=== PATIENT | male | born 1950 | race Caucasian/White ===

== ENCOUNTER 2018-03-17 11:43 | Inpatient (IN) | payer MEDICARE, OTHER ==
[~2018-03-17] VITALS: Ht 188 cm; Wt 75.2 kg
[2018-03-17] VITALS (10 sets, daily range): BP systolic 69–103; BP diastolic 35–64
[2018-03-17] MEDS ORDERED: normal saline 1000ML IV soln IV ONE (12:20)
[2018-03-17] MEDS ORDERED: vancomycin/NS 1 GM ADD-VANTAGE 250 ML IV ONE (12:20)
[2018-03-17] MEDS ORDERED: piperacillin/tazo 3.375gm/50ml 50 ML IV ONE (12:20)
[2018-03-17] MEDS ORDERED: iohexol 350MG/ML 100ml bottle IV ONE (12:28)
[2018-03-17] MEDS ORDERED: dextrose 50%-water 50ml dispensing syringe IV ONE ×2 (12:28→12:30)
[2018-03-17 12:45] LABS: BASOPHILS % (AUTO) 0 % (0-1); EOSINOPHILS % (AUTO) 0 % (0-6); HEMATOCRIT 47.8 % (42.0-52.0); HEMOGLOBIN 16.2 g/dl (14.0-17.9); LYMPHOCYTES # (AUTO) 0.7 X10'3 (1.1-4.8); LYMPHOCYTES % (AUTO) 2.7 % (21-51); MEAN CORPUSCULAR HEMOGLOBIN 31.4 PG (27.0-31.0); MEAN CORPUSCULAR HGB CONC 33.9 % (33.0-36.5); MEAN CORPUSCULAR VOLUME 92.7 FL (78-98); MEAN PLATELET VOLUME 8.6 FL (7.4-10.4); MONOCYTES % (AUTO) 0.1 % (2-12); NEUTROPHILS # (AUTO) 23.3 X10'3 (1.8-7.7); NEUTROPHILS % (AUTO) 97.2 % (42-75); RED BLOOD COUNT 5.16 X10'6 (4.70-6.10); RED CELL DISTRIBUTION WIDTH 14.6 % (11.5-14.5)
[2018-03-17 12:56] LABS: ABG BASE EXCESS -13.8 mmol/L (-2.0-3.0); ABG HCO3 9.8 mmol/L (22.0-26.0); ABG OXYGEN SATURATION 96.4 % (95-98); ABG PCO2 (T) 19.7 mmHg (35.0-48.0); ABG PH (T) 7.315 (7.350-7.450); ABG PO2 (T) 88.4 mmHg (83-108); ALLEN'S TEST Positive; FCOHb 1.4 % (0.5-1.5); FMetHb 0.2 % (0.3-1.12); FO2Hb 94.9 % (94-100); RESPIRATORY RATE (OBSERVED) 12 b/min; TOTAL HEMOGLOBIN 15.2 G/dl (14.0-18.0)
[2018-03-17 13:01] LABS: PLATELET COUNT 34 X10'3 (140-440)
[2018-03-17 13:05] LABS: PLATELET ESTIMATE DECREASED; TOTAL CELLS COUNTED 100; TOXIC VACUOLATION 3+
[2018-03-17 13:13] LABS: INR 1.8 INR
[2018-03-17 13:16] LABS: TOXIC GRANULATION 2+
[2018-03-17 13:17] LABS: ACANTHOCYTES 1+; PARTIAL THROMBOPLASTIN TIME 106 SECONDS (22-32); SCHISTOCYTES FEW
[2018-03-17] MEDS ORDERED: sodium chloride inj. 154 MEQ in Dextrose 10%-water IV solution 961.5 ML IV SCH ×2 (14:00→16:20)
[2018-03-17 14:12] LABS: HEMOGLOBIN A1C 5.8 % (4.5-6.2)
[2018-03-17 14:21] LABS: CHOL/HDL RATIO 2.6 (0.00-4.99); CHOLESTEROL 123 MG/DL (0-200); CREATINE KINASE 823 U/L (39-308); HDL CHOLESTEROL 47 MG/DL (35-60); LDL CHOLESTEROL 55 MG/DL (50-100); TRIGLYCERIDES 164 MG/DL (20-135)
[2018-03-17] MEDS ORDERED: NO HOME MEDS (14:54)
[2018-03-17 14:56] LABS: CHLORIDE 99 MMOL/L (99-107); GLUCOSE 37 MG/DL (70-104); POTASSIUM 3.8 MMOL/L (3.5-5.1); SODIUM 140 MMOL/L (135-145)
[2018-03-17 14:57] LABS: ALANINE AMINOTRANSFERASE 52 U/L (12-78); ALBUMIN 3.3 G/DL (3.4-5.0); ALBUMIN/GLOBULIN RATIO 1.1 (1.1-1.5); ALKALINE PHOSPHATASE 98 IU/L (46-116); ANION GAP 26 (8-16); ASPARTATE AMINO TRANSFERASE 98 U/L (10-37); BILIRUBIN,TOTAL 2.1 MG/DL (0.1-1.0); BLOOD UREA NITROGEN 28 MG/DL (7-18); BUN/CREATININE RATIO 7.7 (5.4-32.0); CALCIUM 8.5 MG/DL (8.5-10.1); CREATININE 3.64 MG/DL (0.60-1.10); MAGNESIUM 1.7 MG/DL (1.5-2.4); TOTAL PROTEIN 6.4 G/DL (6.4-8.2); eGFR 17 ML/MIN
[2018-03-17] MEDS ORDERED: normal saline 1000ml 1,000 ML IV PRN (16:16)
[2018-03-17] MEDS ORDERED: thiamine 100mg/ml 2ml inj. IV ONE (16:20)
[2018-03-17] MEDS ORDERED: dextrose 50%-water 50ml dispensing syringe IV PRN ×2 (16:20)
[2018-03-17] MEDS ORDERED: glucagon, human recombinant 1mg kit SUBCUT PRN (16:20)
[2018-03-17] MEDS ORDERED: acetaminophen 650mg rectal suppository RC PRN (16:20)
[2018-03-17] MEDS ORDERED: dextrose ORAL solution 15 GM/59 ML bottle PO PRN ×2 (16:20)
[2018-03-17] MEDS ORDERED: ondansetron/PF 4mg/2ml inj IV PRN (16:20)
[2018-03-17] MEDS ORDERED: morphine 4 MG/ML inj SYRINge IV PRN (16:20)
[2018-03-17] MEDS ORDERED: acetaminophen 325mg tablet PO PRN ×2 (16:20)
[2018-03-17] MEDS ORDERED: ipratropium/albuterol 3ml nebule NEB PRN (16:20)
[2018-03-17] MEDS ORDERED: vancomycin inj 500 MG in normal saline 100ml IV soln 100 ML IV ONE (16:50)
[2018-03-17 17:10] LABS: D-DIMER > 35.20 MG/L FEU (0-0.50)
[2018-03-17 17:24] LABS: ACETAMINOPHEN 3.9 UG/ML (10-30); LIPASE 81 U/L (73-393)
[2018-03-17] MEDS: NORepinephrine 8mg/ 250ml NS 250 ML IV PRN ×3 (17:24→23:01)
[2018-03-17 17:26] LABS: AMYLASE 51 U/L (25-115)
[2018-03-17 17:28] LABS: ETHANOL < 0.010 GM/DL (0.0-0.010)
[2018-03-17] MEDS ORDERED: normal saline 1000ML IV soln IVB ONE (18:40)
[2018-03-17 19:21] LABS: CLARITY,URINE SLIGHTLY CLOUDY (Clear); COLOR,URINE AMBER (Yellow); GLUCOSE, URINE NEGATIVE (Neg); KETONES,URINE TRACE mg/dl (Neg); LEUKOCYTE ESTERASE ,URINE NEGATIVE (Neg); NITRITES, URINE NEGATIVE (Neg); OCCULT BLOOD,URINE LARGE (Neg); PROTEIN,URINE 100 mg/dl (Neg); UA COLLECTION TYPE FOLEY CATH; UROBILINOGEN,URINE 0.2 E.U/dL (0.2-1.0)
[2018-03-17 19:26] LABS: URINE AMPHETAMINE SCREEN NEGATIVE (Neg); URINE BARBITUATE SCREEN NEGATIVE (Neg); URINE BENZODIAZEPINES SCREEN NEGATIVE (Neg); URINE CANNABINOID SCREEN POSITIVE (Neg); URINE COCAINE SCREEN NEGATIVE (Neg); URINE METHADONE SCREEN NEGATIVE (Neg); URINE OPIATE SCREEN NEGATIVE (Neg); URINE PHENCYCLIDINE SCREEN NEGATIVE (Neg)
[2018-03-17 19:30] LABS: AMORPHOUS URATES 2+; CAL OXALATE CRYSTALS 1+ /HPF (NEGATIVE)
[2018-03-17 19:32] LABS: BACTERIA,URINE NONE SEEN /HPF (Neg); RBC,URINE 0-2 /HPF (0-2); SQUAMOUS EPITHELIAL CELL,UR NONE SEEN /LPF (FEW); WBC,URINE 0-4 /HPF (0-4)
[2018-03-17 19:33] LABS: FINE GRANULAR CAST 0-3 /LPF (NEGATIVE); MUCUS STRANDS NONE SEEN /LPF (Neg); TRANSITIONAL EPI CELLS,URINE FEW /HPF
[2018-03-17 19:34] LABS: COARSE GRANULAR CAST 0-3 /LPF (NEGATIVE)
[2018-03-17] MEDS: piperacillin-tazo 2.25gm/50ml 50 ML IV SCH (20:51)
[2018-03-17] MEDS: normal saline 1000ml 1,000 ML IV SCH ×2 (20:53→22:56)
[2018-03-17] MEDS: thiamine inj. 100 MG, magnesium sulf injection 2 GM, MVI, adult No.4 with vit. K 10 ML ... IV SCH ×4 (20:56)
[2018-03-17] MEDS: famotidine/PF 10 mg/ml inj IV SCH (20:56)
[2018-03-17 21:10] LABS: OXYGEN SATURATION (MIXED VEN) 62.9 % (60-80); PO2 MIXED VENOUS (TEMP COR) 37.6 mmHg (35-46)
[2018-03-17 21:45] LABS: BASOPHILS % (AUTO) 0 % (0-1); EOSINOPHILS # (AUTO) 0.1 X10'3 (0-0.9); EOSINOPHILS % (AUTO) 0.1 % (0-6); HEMATOCRIT 42.5 % (42.0-52.0); HEMOGLOBIN 14.5 g/dl (14.0-17.9); LYMPHOCYTES # (AUTO) 1.3 X10'3 (1.1-4.8); MEAN CORPUSCULAR HEMOGLOBIN 31.9 PG (27.0-31.0); MEAN CORPUSCULAR HGB CONC 34.2 % (33.0-36.5); MEAN CORPUSCULAR VOLUME 93.2 FL (78-98); MEAN PLATELET VOLUME 7.7 FL (7.4-10.4); MONOCYTES # (AUTO) 0.6 X10'3 (0-0.9); MONOCYTES % (AUTO) 1.4 % (2-12); NEUTROPHILS # (AUTO) 40.5 X10'3 (1.8-7.7); NEUTROPHILS % (AUTO) 95.5 % (42-75); PLATELET COUNT 61 X10'3 (140-440); RED BLOOD COUNT 4.56 X10'6 (4.70-6.10); RED CELL DISTRIBUTION WIDTH 14.5 % (11.5-14.5)
[2018-03-17 21:56] LABS: WHITE BLOOD COUNT 42.5 X10'3 (4.5-11.0)
[2018-03-17] MEDS ORDERED: Dextrose 10%-water IV solution 1,000 ML IV SCH (22:40)
[2018-03-17] MEDS: sodium chloride inj. 154 MEQ in Dextrose 10%-water IV solution 961.5 ML IV SCH (23:00)
[2018-03-18] VITALS (27 sets, daily range): BP systolic 80–127; BP diastolic 55–73
[2018-03-18] MEDS: piperacillin-tazo 2.25gm/50ml 50 ML IV SCH ×3 (02:04→21:43)
[2018-03-18 04:08] LABS: BASOPHILS % (AUTO) 0 % (0-1); EOSINOPHILS % (AUTO) 0 % (0-6); HEMATOCRIT 41.5 % (42.0-52.0); HEMOGLOBIN 14.3 g/dl (14.0-17.9); LYMPHOCYTES # (AUTO) 1.2 X10'3 (1.1-4.8); LYMPHOCYTES % (AUTO) 2.6 % (21-51); MEAN CORPUSCULAR HEMOGLOBIN 31.8 PG (27.0-31.0); MEAN CORPUSCULAR HGB CONC 34.5 % (33.0-36.5); MEAN CORPUSCULAR VOLUME 92.2 FL (78-98); MEAN PLATELET VOLUME 9.1 FL (7.4-10.4); MONOCYTES # (AUTO) 0.1 X10'3 (0-0.9); MONOCYTES % (AUTO) 0.2 % (2-12); NEUTROPHILS # (AUTO) 44.4 X10'3 (1.8-7.7); NEUTROPHILS % (AUTO) 97.2 % (42-75); RED CELL DISTRIBUTION WIDTH 14.9 % (11.5-14.5)
[2018-03-18 04:12] LABS: WHITE BLOOD COUNT 45.7 X10'3 (4.5-11.0)
[2018-03-18 04:13] LABS: PLATELET COUNT 29 X10'3 (140-440)
[2018-03-18 04:15] LABS: INR 1.9 INR; PROTHROMBIN TIME 18.8 SECONDS (9.0-12.0)
[2018-03-18 04:18] LABS: ALANINE AMINOTRANSFERASE 255 U/L (12-78); ALBUMIN 2.4 G/DL (3.4-5.0); ALBUMIN/GLOBULIN RATIO 0.9 (1.1-1.5); ALKALINE PHOSPHATASE 47 IU/L (46-116); ANION GAP 13 (8-16); ASPARTATE AMINO TRANSFERASE 581 U/L (10-37); BILIRUBIN,TOTAL 1.4 MG/DL (0.1-1.0); BLOOD UREA NITROGEN 40 MG/DL (7-18); BUN/CREATININE RATIO 14.7 (5.4-32.0); CALCIUM 6.4 MG/DL (8.5-10.1); CHLORIDE 104 MMOL/L (99-107); CREATININE 2.73 MG/DL (0.60-1.10); GLUCOSE 184 MG/DL (70-104); LIPASE 86 U/L (73-393); MAGNESIUM 2.3 MG/DL (1.5-2.4); PHOSPHORUS 4.3 MG/DL (2.3-4.5); POTASSIUM 3.8 MMOL/L (3.5-5.1); SODIUM 136 MMOL/L (135-145); TOTAL CARBON DIOXIDE 19.3 MMOL/L (24-32); VANCOMYCIN,TROUGH 9.5 UG/ML (6.0-14.0); eGFR 24 ML/MIN
[2018-03-18 04:31] LABS: PARTIAL THROMBOPLASTIN TIME 71 SECONDS (22-32)
[2018-03-18 04:57] LABS: AMYLASE 47 U/L (25-115)
[2018-03-18] MEDS: NORepinephrine 8mg/ 250ml NS 250 ML IV PRN ×2 (05:34→13:21)
[2018-03-18] MEDS: normal saline 1000ml 1,000 ML IV SCH ×3 (05:35→18:56)
[2018-03-18] MEDS: sodium chloride inj. 154 MEQ in Dextrose 10%-water IV solution 961.5 ML IV SCH ×2 (05:35→14:00)
[2018-03-18 06:46] LABS: OCCULT BLOOD STOOL POSITIVE (Neg)
[2018-03-18 06:47] LABS: OCCULT BLOOD STOOL POSITIVE (Neg)
[2018-03-18 06:57] LABS: TOTAL CELLS COUNTED 100
[2018-03-18 06:58] LABS: PLATELET ESTIMATE DECREASED
[2018-03-18 06:59] LABS: ACANTHOCYTES 1+; BURR CELLS 2+; SCHISTOCYTES 1+; TOXIC GRANULATION 2+; TOXIC VACUOLATION 2+
[2018-03-18 07:22] LABS: HIV ANTIBODY 1&2 RAPID NON-REACTIVE (Neg)
[2018-03-18] MEDS: thiamine inj. 100 MG, magnesium sulf injection 2 GM, MVI, adult No.4 with vit. K 10 ML ... IV SCH ×4 (08:34)
[2018-03-18] MEDS: famotidine/PF 10 mg/ml inj IV SCH ×2 (08:35→20:51)
[2018-03-18 08:42] LABS: C DIFF ANTIGEN SEE COMMENTS (NEGATIVE); C DIFF SPECIMEN=DIARRHEA? ACCEPTABLE; C DIFFICILE TOXINS A&B NEGATIVE (Neg)
[2018-03-18 10:18] LABS: CLARITY,URINE Cloudy (Clear); COLOR,URINE Yellow (Yellow); GLUCOSE, URINE Negative (Neg); KETONES,URINE Negative (Neg); LEUKOCYTE ESTERASE ,URINE Negative (Neg); NITRITES, URINE Negative (Neg); OCCULT BLOOD,URINE Moderate (Neg); PROTEIN,URINE 30 mg/dl (Neg); UROBILINOGEN,URINE 0.2 E.U/dL (0.2-1.0)
[2018-03-18 10:20] LABS: CRYPTOSPORIDIUM AG NEGATIVE (Neg); GIARDIA LAMBLIA AG NEGATIVE (Neg)
[2018-03-18 10:21] LABS: UA COLLECTION TYPE FOLEY CATH
[2018-03-18 10:28] LABS: PLATELET COUNT 52 X10'3 (140-440)
[2018-03-18 10:36] LABS: BACTERIA,URINE NONE SEEN /HPF (Neg); SQUAMOUS EPITHELIAL CELL,UR NONE SEEN /LPF (FEW); WBC,URINE 0-4 /HPF (0-4)
[2018-03-18 10:37] LABS: AMORPHOUS URATES 2+; MUCUS STRANDS FEW /LPF (Neg)
[2018-03-18 10:39] LABS: COARSE GRANULAR CAST 0-3 /LPF (NEGATIVE)
[2018-03-18 10:48] LABS: UA EOSINOPHILS NO EOS /HPF
[2018-03-18 11:11] LABS: D-DIMER > 35.20 MG/L FEU (0-0.50); INR 1.5 INR; PARTIAL THROMBOPLASTIN TIME 56 SECONDS (22-32)
[2018-03-18 11:11] LABS: C DIFF TOXIN (LAMP) POSITIVE (NEG)
[2018-03-18] MEDS ORDERED: vancomycin/NS 1 GM ADD-VANTAGE 250 ML IV SCH (13:00)
[2018-03-18] MEDS: metroNIDAZOLE-Flagyl 500mg/NS 100 ML IV SCH (13:16)
[2018-03-18] MEDS ORDERED: vancomycin inj 1,250 MG in normal saline 250ml IV soln 250 ML IV SCH (17:00)
[2018-03-18 19:20] LABS: BASOPHILS % (AUTO) 0 % (0-1); EOSINOPHILS % (AUTO) 0 % (0-6); HEMATOCRIT 37.1 % (42.0-52.0); HEMOGLOBIN 12.9 g/dl (14.0-17.9); LYMPHOCYTES # (AUTO) 1.4 X10'3 (1.1-4.8); LYMPHOCYTES % (AUTO) 3.8 % (21-51); MEAN CORPUSCULAR HEMOGLOBIN 31.9 PG (27.0-31.0); MEAN CORPUSCULAR HGB CONC 34.6 % (33.0-36.5); MEAN PLATELET VOLUME 9.1 FL (7.4-10.4); MONOCYTES # (AUTO) 0.3 X10'3 (0-0.9); MONOCYTES % (AUTO) 0.9 % (2-12); NEUTROPHILS # (AUTO) 36.4 X10'3 (1.8-7.7); NEUTROPHILS % (AUTO) 95.3 % (42-75); RED BLOOD COUNT 4.04 X10'6 (4.70-6.10); RED CELL DISTRIBUTION WIDTH 14.9 % (11.5-14.5)
[2018-03-18 19:35] LABS: ALANINE AMINOTRANSFERASE 220 U/L (12-78); ALBUMIN 2.3 G/DL (3.4-5.0); ALBUMIN/GLOBULIN RATIO 0.9 (1.1-1.5); ALKALINE PHOSPHATASE 53 IU/L (46-116); ANION GAP 12 (8-16); ASPARTATE AMINO TRANSFERASE 354 U/L (10-37); BILIRUBIN,TOTAL 0.9 MG/DL (0.1-1.0); BLOOD UREA NITROGEN 37 MG/DL (7-18); BUN/CREATININE RATIO 17.7 (5.4-32.0); CALCIUM 6.6 MG/DL (8.5-10.1); CHLORIDE 108 MMOL/L (99-107); CREATININE 2.09 MG/DL (0.60-1.10); GLUCOSE 113 MG/DL (70-104); MAGNESIUM 2.4 MG/DL (1.5-2.4); POTASSIUM 3.3 MMOL/L (3.5-5.1); SODIUM 140 MMOL/L (135-145); TOTAL CARBON DIOXIDE 20.1 MMOL/L (24-32); TOTAL PROTEIN 4.8 G/DL (6.4-8.2); eGFR 32 ML/MIN
[2018-03-18 19:44] LABS: WHITE BLOOD COUNT 38.2 X10'3 (4.5-11.0)
[2018-03-18 19:45] LABS: PLATELET COUNT 25 X10'3 (140-440)
[2018-03-18] MEDS ORDERED: potassium Cl 20 mEq/100mL bag IV ONE (20:00)
[2018-03-18] MEDS: lactobacillus rhamnosus 10,000 MMU CELLS/CAPSULE PO SCH (20:49)
[2018-03-18] MEDS: dextrose 5%-1/2 normal saline 1,000 ML IV SCH (23:21)
[2018-03-19] VITALS (24 sets, daily range): BP systolic 101–148; BP diastolic 60–92
[2018-03-19] MEDS: metroNIDAZOLE-Flagyl 500mg/NS 100 ML IV SCH ×2 (00:35→08:43)
[2018-03-19] MEDS: piperacillin-tazo 2.25gm/50ml 50 ML IV SCH ×2 (02:13→07:59)
[2018-03-19 02:45] LABS: BASOPHILS % (AUTO) 0 % (0-1); EOSINOPHILS % (AUTO) 0 % (0-6); HEMATOCRIT 36.6 % (42.0-52.0); HEMOGLOBIN 12.5 g/dl (14.0-17.9); LYMPHOCYTES # (AUTO) 1.3 X10'3 (1.1-4.8); LYMPHOCYTES % (AUTO) 3.5 % (21-51); MEAN CORPUSCULAR HEMOGLOBIN 31.7 PG (27.0-31.0); MEAN CORPUSCULAR HGB CONC 34.2 % (33.0-36.5); MEAN CORPUSCULAR VOLUME 92.8 FL (78-98); MEAN PLATELET VOLUME 8.1 FL (7.4-10.4); MONOCYTES # (AUTO) 0.5 X10'3 (0-0.9); MONOCYTES % (AUTO) 1.3 % (2-12); NEUTROPHILS # (AUTO) 34.3 X10'3 (1.8-7.7); NEUTROPHILS % (AUTO) 95.2 % (42-75); RED BLOOD COUNT 3.95 X10'6 (4.70-6.10); RED CELL DISTRIBUTION WIDTH 14.9 % (11.5-14.5)
[2018-03-19 02:56] LABS: PLATELET COUNT 50 X10'3 (140-440)
[2018-03-19 03:00] LABS: ALANINE AMINOTRANSFERASE 203 U/L (12-78); ALBUMIN 2.4 G/DL (3.4-5.0); ALBUMIN/GLOBULIN RATIO 0.9 (1.1-1.5); ALKALINE PHOSPHATASE 70 IU/L (46-116); ANION GAP 12 (8-16); ASPARTATE AMINO TRANSFERASE 317 U/L (10-37); BILIRUBIN,TOTAL 1.2 MG/DL (0.1-1.0); BLOOD UREA NITROGEN 33 MG/DL (7-18); BUN/CREATININE RATIO 18.4 (5.4-32.0); CALCIUM 7.3 MG/DL (8.5-10.1); CHLORIDE 107 MMOL/L (99-107); CREATININE 1.79 MG/DL (0.60-1.10); GLUCOSE 97 MG/DL (70-104); POTASSIUM 3.7 MMOL/L (3.5-5.1); SODIUM 139 MMOL/L (135-145); TOTAL CARBON DIOXIDE 20.2 MMOL/L (24-32); TOTAL PROTEIN 5.1 G/DL (6.4-8.2); eGFR 38 ML/MIN
[2018-03-19 03:03] LABS: PARTIAL THROMBOPLASTIN TIME 39 SECONDS (22-32); PROTHROMBIN TIME 10.7 SECONDS (9.0-12.0)
[2018-03-19 03:36] LABS: TOTAL CELLS COUNTED 100
[2018-03-19 03:37] LABS: BURR CELLS 1+; PLATELET ESTIMATE DECREASED
[2018-03-19 03:42] LABS: TOXIC GRANULATION 1+
[2018-03-19] MEDS: dextrose 5%-1/2 normal saline 1,000 ML IV SCH ×4 (05:50→23:10)
[2018-03-19] MEDS: lactobacillus rhamnosus 10,000 MMU CELLS/CAPSULE PO SCH ×2 (07:59→20:18)
[2018-03-19] MEDS: famotidine/PF 10 mg/ml inj IV SCH ×2 (07:59→20:18)
[2018-03-19] MEDS: thiamine inj. 100 MG, magnesium sulf injection 2 GM, MVI, adult No.4 with vit. K 10 ML ... IV SCH ×4 (10:24)
[2018-03-19] MEDS ORDERED: lactulose 20gm/30ml cup PO PRN (16:20)
[2018-03-19] MEDS: piperacillin/tazo 3.375gm/50ml 50 ML IV SCH ×2 (16:37→23:12)
[2018-03-20] VITALS (17 sets, daily range): BP systolic 81–156; BP diastolic 45–81
[2018-03-20 02:57] LABS: BASOPHILS % (AUTO) 0 % (0-1); EOSINOPHILS % (AUTO) 0 % (0-6); HEMATOCRIT 34.6 % (42.0-52.0); HEMOGLOBIN 11.7 g/dl (14.0-17.9); LYMPHOCYTES # (AUTO) 1.1 X10'3 (1.1-4.8); LYMPHOCYTES % (AUTO) 4.3 % (21-51); MEAN CORPUSCULAR HEMOGLOBIN 31.2 PG (27.0-31.0); MEAN CORPUSCULAR HGB CONC 33.7 % (33.0-36.5); MEAN CORPUSCULAR VOLUME 92.5 FL (78-98); MEAN PLATELET VOLUME 10.2 FL (7.4-10.4); MONOCYTES # (AUTO) 0.4 X10'3 (0-0.9); MONOCYTES % (AUTO) 1.6 % (2-12); NEUTROPHILS # (AUTO) 23.3 X10'3 (1.8-7.7); NEUTROPHILS % (AUTO) 94.1 % (42-75); RED BLOOD COUNT 3.74 X10'6 (4.70-6.10); RED CELL DISTRIBUTION WIDTH 14.5 % (11.5-14.5); WHITE BLOOD COUNT 24.7 X10'3 (4.5-11.0)
[2018-03-20 03:07] LABS: PARTIAL THROMBOPLASTIN TIME 30 SECONDS (22-32); PROTHROMBIN TIME 10.2 SECONDS (9.0-12.0)
[2018-03-20 03:17] LABS: ALANINE AMINOTRANSFERASE 164 U/L (12-78); ALBUMIN 2.3 G/DL (3.4-5.0); ALBUMIN/GLOBULIN RATIO 0.9 (1.1-1.5); ALKALINE PHOSPHATASE 142 IU/L (46-116); ANION GAP 7 (8-16); ASPARTATE AMINO TRANSFERASE 202 U/L (10-37); BILIRUBIN,TOTAL 2.7 MG/DL (0.1-1.0); BLOOD UREA NITROGEN 24 MG/DL (7-18); BUN/CREATININE RATIO 19.2 (5.4-32.0); CALCIUM 7.6 MG/DL (8.5-10.1); CHLORIDE 104 MMOL/L (99-107); CREATININE 1.25 MG/DL (0.60-1.10); GLUCOSE 125 MG/DL (70-104); POTASSIUM 3.1 MMOL/L (3.5-5.1); SODIUM 136 MMOL/L (135-145); TOTAL CARBON DIOXIDE 24.9 MMOL/L (24-32); eGFR 58 ML/MIN
[2018-03-20 03:21] LABS: PLATELET COUNT 27 X10'3 (140-440)
[2018-03-20] MEDS: lactobacillus rhamnosus 10,000 MMU CELLS/CAPSULE PO SCH ×2 (08:14→20:18)
[2018-03-20] MEDS: piperacillin/tazo 3.375gm/50ml 50 ML IV SCH ×3 (08:14→23:27)
[2018-03-20] MEDS: famotidine/PF 10 mg/ml inj IV SCH ×2 (08:15→20:17)
[2018-03-20] MEDS ORDERED: VANCOMYCIN LEVEL IV ONE (12:30)
[2018-03-20] MEDS: thiamine 100mg tablet PO SCH ×2 (12:54→20:18)
[2018-03-20] MEDS: multivitamins, therapeutics tablet PO SCH (12:54)
[2018-03-20] MEDS: magnesium Cl slow-release 64mg tablet PO SCH ×2 (12:54→20:18)
[2018-03-20] MEDS: LACTOSE-FREE FOOD 237ML (BOOST) PO SCH ×2 (13:00→20:19)
[2018-03-20 13:28] LABS: HEP B CORE AB, IGM Negative (Negative); HEP B CORE AB, TOT Negative (Negative); HEPATITIS C ANTIBODY >11.0 s/co ratio (0.0-0.9)
[2018-03-20] MEDS: guaiFENesin 200 MG/10 ML oral syrup UD cup PO PRN (23:27)
[2018-03-20] MEDS: morphine 4 MG/ML inj SYRINge IV PRN (23:28)
[2018-03-21] VITALS: BP 125/76
[2018-03-21] MEDS ORDERED: potassium Cl 40MEQ/NS 500ml 500 ML IV PRN ×2 (00:30)
[2018-03-21] MEDS ORDERED: potassium Cl 20 mEq SR tablet PO PRN (00:30)
[2018-03-21 03:29] LABS: BASOPHILS % (AUTO) 0.1 % (0-1); EOSINOPHILS # (AUTO) 0.2 X10'3 (0-0.9); EOSINOPHILS % (AUTO) 1.4 % (0-6); HEMATOCRIT 35.9 % (42.0-52.0); HEMOGLOBIN 12.3 g/dl (14.0-17.9); LYMPHOCYTES # (AUTO) 1.6 X10'3 (1.1-4.8); LYMPHOCYTES % (AUTO) 10.6 % (21-51); MEAN CORPUSCULAR HEMOGLOBIN 31.4 PG (27.0-31.0); MEAN CORPUSCULAR HGB CONC 34.2 % (33.0-36.5); MEAN CORPUSCULAR VOLUME 91.7 FL (78-98); MEAN PLATELET VOLUME 10.6 FL (7.4-10.4); MONOCYTES # (AUTO) 1.3 X10'3 (0-0.9); MONOCYTES % (AUTO) 8.6 % (2-12); NEUTROPHILS # (AUTO) 11.8 X10'3 (1.8-7.7); NEUTROPHILS % (AUTO) 79.3 % (42-75); RED BLOOD COUNT 3.91 X10'6 (4.70-6.10); RED CELL DISTRIBUTION WIDTH 14.8 % (11.5-14.5); WHITE BLOOD COUNT 14.9 X10'3 (4.5-11.0)
[2018-03-21 03:44] LABS: PARTIAL THROMBOPLASTIN TIME 26 SECONDS (22-32); PROTHROMBIN TIME 10.8 SECONDS (9.0-12.0)
[2018-03-21 04:06] LABS: PLATELET COUNT 50 X10'3 (140-440)
[2018-03-21 04:24] LABS: ALANINE AMINOTRANSFERASE 133 U/L (12-78); ALBUMIN 2.4 G/DL (3.4-5.0); ALBUMIN/GLOBULIN RATIO 0.8 (1.1-1.5); ALKALINE PHOSPHATASE 156 IU/L (46-116); ANION GAP 10 (8-16); ASPARTATE AMINO TRANSFERASE 118 U/L (10-37); BLOOD UREA NITROGEN 22 MG/DL (7-18); BUN/CREATININE RATIO 21.2 (5.4-32.0); CALCIUM 8.5 MG/DL (8.5-10.1); CHLORIDE 107 MMOL/L (99-107); CREATININE 1.04 MG/DL (0.60-1.10); GLUCOSE 92 MG/DL (70-104); POTASSIUM 3.2 MMOL/L (3.5-5.1); SODIUM 142 MMOL/L (135-145); TOTAL CARBON DIOXIDE 24.7 MMOL/L (24-32); TOTAL PROTEIN 5.3 G/DL (6.4-8.2); eGFR 72 ML/MIN
[2018-03-21] MEDS: guaiFENesin 200 MG/10 ML oral syrup UD cup PO PRN (04:43)
[2018-03-21] MEDS: potassium Cl 20 mEq SR tablet PO PRN ×3 (04:43→17:58)
[2018-03-21 07:14] VITALS: BP 128/72
[2018-03-21] MEDS: famotidine/PF 10 mg/ml inj IV SCH ×2 (08:00→20:07)
[2018-03-21] MEDS: lactobacillus rhamnosus 10,000 MMU CELLS/CAPSULE PO SCH ×2 (09:39→20:07)
[2018-03-21] MEDS: magnesium Cl slow-release 64mg tablet PO SCH ×2 (09:39→20:07)
[2018-03-21] MEDS: multivitamins, therapeutics tablet PO SCH (09:39)
[2018-03-21] MEDS: thiamine 100mg tablet PO SCH ×2 (09:39→20:07)
[2018-03-21] MEDS: LACTOSE-FREE FOOD 237ML (BOOST) PO SCH ×4 (09:44→20:06)
[2018-03-21 11:00] VITALS: BP 138/84
[2018-03-21] MEDS: piperacillin/tazo 3.375gm/50ml 50 ML IV SCH ×2 (15:22→20:07)
[2018-03-21 20:00] VITALS: BP 132/71
[2018-03-22] VITALS: BP 128/86
[2018-03-22] MEDS: piperacillin/tazo 3.375gm/50ml 50 ML IV SCH ×4 (01:31→21:07)
[2018-03-22] MEDS: morphine 4 MG/ML inj SYRINge IV PRN (02:38)
[2018-03-22 05:24] LABS: BASOPHILS % (AUTO) 0.2 % (0-1); EOSINOPHILS # (AUTO) 0.4 X10'3 (0-0.9); EOSINOPHILS % (AUTO) 2.6 % (0-6); HEMATOCRIT 37.9 % (42.0-52.0); HEMOGLOBIN 12.9 g/dl (14.0-17.9); LYMPHOCYTES # (AUTO) 2.2 X10'3 (1.1-4.8); LYMPHOCYTES % (AUTO) 14.8 % (21-51); MEAN CORPUSCULAR HEMOGLOBIN 31.3 PG (27.0-31.0); MEAN CORPUSCULAR VOLUME 92.1 FL (78-98); MEAN PLATELET VOLUME 13.4 FL (7.4-10.4); MONOCYTES # (AUTO) 2.8 X10'3 (0-0.9); NEUTROPHILS # (AUTO) 9.4 X10'3 (1.8-7.7); NEUTROPHILS % (AUTO) 63.4 % (42-75); PLATELET COUNT 81 X10'3 (140-440); RED BLOOD COUNT 4.12 X10'6 (4.70-6.10); RED CELL DISTRIBUTION WIDTH 14.9 % (11.5-14.5); WHITE BLOOD COUNT 14.8 X10'3 (4.5-11.0)
[2018-03-22 05:53] LABS: INR 1.1 INR; PARTIAL THROMBOPLASTIN TIME 25 SECONDS (22-32); PROTHROMBIN TIME 10.9 SECONDS (9.0-12.0)
[2018-03-22 06:00] LABS: ALANINE AMINOTRANSFERASE 104 U/L (12-78); ALBUMIN 2.4 G/DL (3.4-5.0); ALBUMIN/GLOBULIN RATIO 0.8 (1.1-1.5); ALKALINE PHOSPHATASE 145 IU/L (46-116); ANION GAP 9 (8-16); ASPARTATE AMINO TRANSFERASE 66 U/L (10-37); BILIRUBIN,TOTAL 1.8 MG/DL (0.1-1.0); BLOOD UREA NITROGEN 20 MG/DL (7-18); BUN/CREATININE RATIO 18.9 (5.4-32.0); CALCIUM 8.6 MG/DL (8.5-10.1); CHLORIDE 108 MMOL/L (99-107); CREATININE 1.06 MG/DL (0.60-1.10); GLUCOSE 89 MG/DL (70-104); POTASSIUM 3.4 MMOL/L (3.5-5.1); SODIUM 143 MMOL/L (135-145); TOTAL CARBON DIOXIDE 26.2 MMOL/L (24-32); TOTAL PROTEIN 5.6 G/DL (6.4-8.2); eGFR 70 ML/MIN
[2018-03-22 06:15] LABS: EOSINOPHILS % (MANUAL) 1 % (0-6); LYMPHOCYTES % (MANUAL) 19 % (21-51); METAMYLEOCYTES% (MANUAL) 1 % (0-0); MONOCYTES % (MANUAL) 17 % (2-12); NEUTROPHILS % (MANUAL) 62 % (42-75); TOTAL CELLS COUNTED 100
[2018-03-22 06:16] LABS: PLATELET ESTIMATE DECREASED; TARGET CELLS 1+
[2018-03-22 06:17] LABS: TOXIC VACUOLATION 1+
[2018-03-22 08:00] VITALS: BP_SYST 143; BP_SYST 163; BP_DIAS 55; BP_DIAS 77
[2018-03-22] MEDS: lactobacillus rhamnosus 10,000 MMU CELLS/CAPSULE PO SCH ×2 (08:11→21:07)
[2018-03-22] MEDS: multivitamins, therapeutics tablet PO SCH (08:11)
[2018-03-22] MEDS: magnesium Cl slow-release 64mg tablet PO SCH ×2 (08:11→21:08)
[2018-03-22] MEDS: thiamine 100mg tablet PO SCH ×2 (08:11→21:07)
[2018-03-22] MEDS: carbamide peroxide 15ml bottle EACH EAR SCH ×2 (08:12→20:00)
[2018-03-22] MEDS: famotidine/PF 10 mg/ml inj IV SCH ×2 (08:16→21:08)
[2018-03-22] MEDS: potassium Cl 20 mEq SR tablet PO PRN ×3 (08:20→21:11)
[2018-03-22 12:19] VITALS: BP 139/74
[2018-03-22] MEDS: LACTOSE-FREE FOOD 237ML (BOOST) PO SCH ×2 (13:00→18:00)
[2018-03-22 18:00] VITALS: BP 144/63
[2018-03-23] VITALS: BP 126/77
[2018-03-23] MEDS: piperacillin/tazo 3.375gm/50ml 50 ML IV SCH ×3 (01:40→13:27)
[2018-03-23 05:34] LABS: BASOPHILS % (AUTO) 0.2 % (0-1); EOSINOPHILS # (AUTO) 0.6 X10'3 (0-0.9); EOSINOPHILS % (AUTO) 3.4 % (0-6); HEMATOCRIT 41.5 % (42.0-52.0); HEMOGLOBIN 14.2 g/dl (14.0-17.9); LYMPHOCYTES # (AUTO) 2.8 X10'3 (1.1-4.8); LYMPHOCYTES % (AUTO) 16.4 % (21-51); MEAN CORPUSCULAR HEMOGLOBIN 31.4 PG (27.0-31.0); MEAN CORPUSCULAR HGB CONC 34.2 % (33.0-36.5); MEAN CORPUSCULAR VOLUME 91.9 FL (78-98); MEAN PLATELET VOLUME 12.1 FL (7.4-10.4); MONOCYTES # (AUTO) 2.4 X10'3 (0-0.9); MONOCYTES % (AUTO) 14.4 % (2-12); NEUTROPHILS # (AUTO) 11.1 X10'3 (1.8-7.7); NEUTROPHILS % (AUTO) 65.6 % (42-75); PLATELET COUNT 143 X10'3 (140-440); RED BLOOD COUNT 4.51 X10'6 (4.70-6.10); RED CELL DISTRIBUTION WIDTH 14.9 % (11.5-14.5)
[2018-03-23 05:45] LABS: PARTIAL THROMBOPLASTIN TIME 24 SECONDS (22-32); PROTHROMBIN TIME 10.8 SECONDS (9.0-12.0)
[2018-03-23 05:47] LABS: ALANINE AMINOTRANSFERASE 92 U/L (12-78); ALBUMIN 2.7 G/DL (3.4-5.0); ALBUMIN/GLOBULIN RATIO 0.8 (1.1-1.5); ALKALINE PHOSPHATASE 158 IU/L (46-116); ANION GAP 6 (8-16); ASPARTATE AMINO TRANSFERASE 49 U/L (10-37); BILIRUBIN,TOTAL 1.3 MG/DL (0.1-1.0); BLOOD UREA NITROGEN 20 MG/DL (7-18); BUN/CREATININE RATIO 16.9 (5.4-32.0); CALCIUM 8.9 MG/DL (8.5-10.1); CHLORIDE 106 MMOL/L (99-107); CREATININE 1.18 MG/DL (0.60-1.10); GLUCOSE 84 MG/DL (70-104); POTASSIUM 4.2 MMOL/L (3.5-5.1); SODIUM 142 MMOL/L (135-145); TOTAL CARBON DIOXIDE 29.9 MMOL/L (24-32); TOTAL PROTEIN 6.2 G/DL (6.4-8.2); eGFR 62 ML/MIN
[2018-03-23 06:03] LABS: LARGE PLATELETS FEW; PLATELET ESTIMATE NORMAL
[2018-03-23] MEDS: famotidine/PF 10 mg/ml inj IV SCH (07:36)
[2018-03-23] MEDS: lactobacillus rhamnosus 10,000 MMU CELLS/CAPSULE PO SCH (07:36)
[2018-03-23] MEDS: multivitamins, therapeutics tablet PO SCH (07:36)
[2018-03-23] MEDS: magnesium Cl slow-release 64mg tablet PO SCH (07:36)
[2018-03-23] MEDS: thiamine 100mg tablet PO SCH (07:36)
[2018-03-23] MEDS: carbamide peroxide 15ml bottle EACH EAR SCH (07:38)
[2018-03-23] MEDS: LACTOSE-FREE FOOD 237ML (BOOST) PO SCH ×2 (07:50→13:28)
[2018-03-23 08:00] VITALS: BP 138/81
[2018-03-23 11:00] VITALS: BP 141/78
[2018-03-23] MEDS ORDERED: VANC125C4 PO (15:22)
[2018-03-23] MEDS ORDERED: AMOX-422 PO (15:22)
== END 2018-03-23 16:54 | disposition home or self-care (01) | DRG 871 ==
LOC: ER 11:44 → ED HOLD 16:16 → EDBEDREQ 19:10 → ICU 2S 20:02 → SUR 3N 03-20 14:10
PROVIDERS: ATTEND Internal Medicine
PROC: 30233R1 Transfusion of Nonautologous Platelets into Peripheral Vein, Percutaneous Approach (ICD-10-PCS; principal; 2018-03-17)
PROC: B3201ZZ Computerized Tomography (CT Scan) of Thoracic Aorta using Low Osmolar Contrast (ICD-10-PCS; 2018-03-17)
PROC: B4201ZZ Computerized Tomography (CT Scan) of Abdominal Aorta using Low Osmolar Contrast (ICD-10-PCS; 2018-03-17)
PROC: 02HV33Z Insertion of Infusion Device into Superior Vena Cava, Percutaneous Approach (ICD-10-PCS; 2018-03-17)
PROC: B548ZZA Ultrasonography of Superior Vena Cava, Guidance (ICD-10-PCS; 2018-03-17)
PROC: 30233R1 Transfusion of Nonautologous Platelets into Peripheral Vein, Percutaneous Approach (ICD-10-PCS; 2018-03-18)
PROC: 30233R1 Transfusion of Nonautologous Platelets into Peripheral Vein, Percutaneous Approach (ICD-10-PCS; 2018-03-20)
DX: A41.50 Gram-negative sepsis, unspecified (principal); R65.21 Severe sepsis with septic shock; D65 Disseminated intravascular coagulation [defibrination syndrome]; A04.72 Enterocolitis due to Clostridium difficile, not specified as recurrent; N17.9 Acute kidney failure, unspecified; E87.4 Mixed disorder of acid-base balance; K92.2 Gastrointestinal hemorrhage, unspecified; R06.03 Acute respiratory distress; E11.649 Type 2 diabetes mellitus with hypoglycemia without coma; E86.0 Dehydration; K29.00 Acute gastritis without bleeding; R09.02 Hypoxemia; S61.251A Open bite of left index finger without damage to nail, initial encounter; G89.29 Other chronic pain; M54.9 Dorsalgia, unspecified; R74.0 Nonspecific elevation of levels of transaminase and lactic acid dehydrogenase [LDH]; F17.210 Nicotine dependence, cigarettes, uncomplicated; W54.0XXA Bitten by dog, initial encounter
CPT/HCPCS: 36415; 36556; 36600; 71045; 71275; 74174; 80053; 80061; 80202; 80305; 80320; 80329; 81001; 82150; 82272; 82550; 82570; 82803; 82810; 82948; 83036; 83605; 83690; 83735; 83880; 84100; 84145; 84300; 84439; 84443; 84484; 85018; 85025; 85379; 85384; 85610; 85730; 86703; 86704; 86705; 86706; 86803; 86885; 86900; 86901; 87040; 87045; 87046; 87070; 87077; 87207; 87324; 87328; 87329; 87336; 87449; 87493; 87502; 87503; 89055; 93005; 93306; 94760; 96365; 96368; 96375; 97162; 97530; 99291; 99292; A6212; A6213; A6257; A6402; A6449; C1751; J2270; J2543; J3370; J3411; J3475; J3480; J3490; J7030; J7060; J7131; P9035; Q9967